=== PATIENT | female | born 1975 | race Caucasian/White ===

== ENCOUNTER → 2018-08-22 | Outpatient (CLI) | payer BC ==
[~2018-08-22] MED LIST: MOTRIN 600600 MG/TAB PO; PRENATAL1 TA1 PO; SENOKOT S 50 MG1 TAB PO; ZITHROMAX 250M250 MG PO
== END ==
LOC: COL.RAD 09:45
DX: R10.2 Pelvic and perineal pain (principal)

== ENCOUNTER → 2020-05-20 | Outpatient (CLI) | payer BC | LOC: MC.RAD 16:29 | DX: Z12.31 Encounter for screening mammogram for malignant neoplasm of breast (principal); R92.1 Mammographic calcification found on diagnostic imaging of breast; N63.10 Unspecified lump in the right breast, unspecified quadrant; N63.20 Unspecified lump in the left breast, unspecified quadrant ==

== ENCOUNTER → 2020-05-27 | Outpatient (CLI) | payer BC | LOC: MC.RAD 11:30 | DX: R92.1 Mammographic calcification found on diagnostic imaging of breast (principal) ==

== ENCOUNTER → 2021-09-02 | Outpatient (CLI) | payer BC | LOC: MC.RAD 07-15 14:30 | DX: Z12.31 Encounter for screening mammogram for malignant neoplasm of breast (principal) ==

== ENCOUNTER → 2023-12-20 | Outpatient (CLI) | payer BC ==
[~2023-12-20] MED LIST changes: +VENTOLIN0.09 MG IH
== END ==
LOC: MC.RAD 14:39
DX: Z12.31 Encounter for screening mammogram for malignant neoplasm of breast (principal)

== ENCOUNTER 2024-04-08 17:13 | Emergency (ER) | payer BC ==
[~2024-04-08] VITALS: Ht 170.2 cm; Wt 68.2 kg
[2024-04-08 17:39] LABS: BASO # 0.1 K/mm3 (0.0-0.2); BASO % 0.6 % (0.0-2.0); EOS # 0.1 K/mm3 (0.0-0.7); EOS % 1.6 % (0.0-4.0); GRAN # 5.6 K/mm3 (1.4-6.5); GRAN % 66.4 % (42.2-75.2); HEMATOCRIT 42.2 % (37.0-47.0); HEMOGLOBIN 13.9 g/dl (12.5-16.0); LYMPH # 1.9 K/mm3 (1.2-3.4); LYMPH % 22.8 % (20.0-51.0); MEAN CELL VOLUME 90 fl (80.0-100.0); MEAN CORPUSCULAR HEMOGLOBIN 30 pg (27-31); MEAN CORPUSCULAR HGB CONC 33 g/dl (33.0-37.0); MEAN PLATELET VOLUME 9.6 fl (7.4-10.4); MONO # 0.7 K/mm3 (0.1-0.6); MONO % 8.2 % (1.7-9.3); PLATELET COUNT 265 K/mm3 (130-400); REDCELL DISTRIBUTION WIDTH-CV 12.9 % (11.5-14.5)
[2024-04-08 17:47] LABS: INR 1.1 (0.8-3.0); PROTHROMBIN TIME 11.6 SECONDS (9.7-12.8)
[2024-04-08 17:50] LABS: PARTIAL THROMBOPLASTIN TIME 30.8 SECONDS (26.0-37.0)
[2024-04-08 17:58] LABS: ALANINE AMINOTRANSFERASE 16 U/L (0-55); ALBUMIN 4.1 g/dL (3.5-5.0); ALKALINE PHOSPHATASE 54 U/L (40-150); ANION GAP 10 mmol/L (7-16); AST,SGOT 17 U/L (5-34); BILIRUBIN,TOTAL 0.3 mg/dL (0.2-1.2); BLOOD UREA NITROGEN 12 mg/dL (7-19); CALCIUM 9.5 mg/dL (8.4-10.2); CHLORIDE 109 mEq/L (98-107); GLUCOSE 103 mg/dL (70-99); MAGNESIUM 2.1 mg/dL (1.6-2.6); POTASSIUM 3.4 mEq/L (3.5-4.5); SODIUM 141 mEq/L (136-145); TOTAL PROTEIN 7.4 g/dl (6.2-8.1)
[2024-04-08 18:07] LABS: TROPONIN-I < 0.010 ng/mL (0.00-0.033)
[2024-04-08 18:39] VITALS: BP 112/72; PULSE 62
== END 2024-04-08 18:39 | disposition home or self-care (01) ==
LOC: COL.ER 17:13
PROVIDERS: Family Medicine
DX: R07.89 Other chest pain (principal)